=== PATIENT | female | born 1960 | race Caucasian/White ===

== ENCOUNTER 2017-06-25 22:07 | Inpatient (IN) | payer MEDICARE, MEDICAID ==
[~2017-06-25] VITALS: Ht 167.6 cm; Wt 81.3 kg
[2017-06-25] MEDS ORDERED: normal saline 1000ML IV soln IVB ONE (22:20)
[2017-06-25 23:15] LABS: ETHANOL < 0.010 GM/DL (0.0-0.010)
[2017-06-25 23:18] LABS: CLARITY,URINE Clear (Clear); COLOR,URINE Yellow (Yellow); GLUCOSE, URINE Negative (Neg); KETONES,URINE Trace mg/dl (Neg); LEUKOCYTE ESTERASE ,URINE Large (Neg); NITRITES, URINE Negative (Neg); OCCULT BLOOD,URINE Small (Neg); PROTEIN,URINE Negative (Neg); UROBILINOGEN,URINE 0.2 E.U/dL (0.2-1.0)
[2017-06-25 23:22] LABS: URINE AMPHETAMINE SCREEN NEGATIVE (Neg); URINE BARBITUATE SCREEN NEGATIVE (Neg); URINE BENZODIAZEPINES SCREEN NEGATIVE (Neg); URINE CANNABINOID SCREEN NEGATIVE (Neg); URINE COCAINE SCREEN NEGATIVE (Neg); URINE METHADONE SCREEN NEGATIVE (Neg); URINE OPIATE SCREEN NEGATIVE (Neg); URINE PHENCYCLIDINE SCREEN NEGATIVE (Neg)
[2017-06-25 23:37] LABS: UA COLLECTION TYPE VOIDED
[2017-06-25 23:51] LABS: BACTERIA,URINE FEW /HPF (Neg); MUCUS STRANDS NONE SEEN /LPF (Neg); RBC,URINE 0-2 /HPF (0-2); SQUAMOUS EPITHELIAL CELL,UR FEW /LPF (FEW)
[2017-06-25 23:52] LABS: TRANSITIONAL EPI CELLS,URINE MODERATE /HPF
[2017-06-25] MEDS ORDERED: LISI40TA4 PO (23:54)
[2017-06-25] MEDS ORDERED: LORA10TA65 PO (23:54)
[2017-06-25] MEDS ORDERED: ALBU8HFA PO (23:54)
[2017-06-25] MEDS ORDERED: ALPR-624 PO (23:54)
[2017-06-25] MEDS ORDERED: BACL10TA PO (23:54)
[2017-06-25] MEDS ORDERED: ASPI-1071 PO (23:54)
[2017-06-25] MEDS ORDERED: TOPI100T18 PO (23:54)
[2017-06-25] MEDS ORDERED: ATOR40TA PO (23:54)
[2017-06-25] MEDS ORDERED: QUET25TA PO (23:54)
[2017-06-25] MEDS ORDERED: HYDR-565 PO (23:55)
[2017-06-25] MEDS ORDERED: ESCI5TAB PO (23:55)
[2017-06-26] VITALS (20 sets, daily range): BP systolic 98–137; BP diastolic 55–86
[2017-06-26] MEDS ORDERED: QUET-1 PO (00:09)
[2017-06-26] MEDS ORDERED: PROC5TAB56 PO (00:09)
[2017-06-26] MEDS ORDERED: BACL10TA PO (00:09)
[2017-06-26] MEDS ORDERED: DOXE6TAB3 PO (00:09)
[2017-06-26] MEDS ORDERED: SUMA25TA35 PO (00:09)
[2017-06-26] MEDS ORDERED: IBAN150T PO (00:09)
[2017-06-26] MEDS ORDERED: TOPI100T18 PO (00:09)
[2017-06-26] MEDS ORDERED: RANI-366 PO (00:09)
[2017-06-26] MEDS ORDERED: AMLO2.5T2 PO (00:09)
[2017-06-26] MEDS ORDERED: ZOLP5TAB2 PO (00:09)
[2017-06-26] MEDS ORDERED: SERT50TA PO (00:09)
[2017-06-26 00:41] LABS: OCCULT BLOOD STOOL POSITIVE (Neg)
[2017-06-26 00:56] LABS: ABG HCO3 12.7 mmol/L (22.0-26.0); ABG OXYGEN SATURATION 93.3 % (95-98); ABG PCO2 (T) 18.1 mmHg (32.0-45.0); ABG PH (T) 7.461 (7.350-7.450); ABG PO2 (T) 66.5 mmHg (83-108); FMetHb 0.2 % (0.3-1.12); FO2Hb 93.1 % (94-100); PATIENT TEMPERATURE 36.8; TOTAL HEMOGLOBIN 11.6 G/dl (12.0-16.0)
[2017-06-26 00:57] LABS: BASOPHILS % (AUTO) 0 % (0-1); EOSINOPHILS % (AUTO) 0.1 % (0-6); HEMATOCRIT 32.5 % (35.0-45.0); HEMOGLOBIN 11.3 g/dl (12.0-16.0); LYMPHOCYTES # (AUTO) 1.4 X10'3 (1.1-4.8); MEAN CORPUSCULAR HEMOGLOBIN 31.8 PG (27.0-31.0); MEAN CORPUSCULAR HGB CONC 34.8 % (33.0-36.5); MEAN CORPUSCULAR VOLUME 91.3 FL (78-98); MEAN PLATELET VOLUME 8.3 FL (7.4-10.4); MONOCYTES # (AUTO) 0.6 X10'3 (0-0.9); MONOCYTES % (AUTO) 6.3 % (2-12); NEUTROPHILS # (AUTO) 7.9 X10'3 (1.8-7.7); NEUTROPHILS % (AUTO) 79.6 % (42-75); PLATELET COUNT 264 X10'3 (140-440); RED BLOOD COUNT 3.56 X10'6 (4.20-5.60); RED CELL DISTRIBUTION WIDTH 13.9 % (11.5-14.5); WHITE BLOOD COUNT 9.9 X10'3 (4.5-11.0)
[2017-06-26 01:00] LABS: ALANINE AMINOTRANSFERASE 59 U/L (12-78); ALBUMIN 3.2 G/DL (3.4-5.0); ALBUMIN/GLOBULIN RATIO 0.9 (1.1-1.5); ALKALINE PHOSPHATASE 67 IU/L (46-116); ANION GAP 16 (8-16); ASPARTATE AMINO TRANSFERASE 222 U/L (10-37); BILIRUBIN,TOTAL 0.7 MG/DL (0.1-1.0); BLOOD UREA NITROGEN 59 MG/DL (7-18); BUN/CREATININE RATIO 29.4 (6.6-38.0); CHLORIDE 104 MMOL/L (99-107); CREATININE 2.01 MG/DL (0.40-0.90); GLUCOSE 118 MG/DL (70-104); INR 2.7 INR; PARTIAL THROMBOPLASTIN TIME 33 SECONDS (22-32); PROTHROMBIN TIME 26.9 SECONDS (9.0-12.0); SODIUM 134 MMOL/L (135-145); TOTAL PROTEIN 6.8 G/DL (6.4-8.2); eGFR 26 ML/MIN
[2017-06-26 01:04] LABS: ACETAMINOPHEN < 2.0 UG/ML (10-30)
[2017-06-26 01:08] LABS: TOTAL CARBON DIOXIDE 14.3 MMOL/L (24-32)
[2017-06-26 01:09] LABS: OSMOLALITY 292 MOSM/K (280-300)
[2017-06-26] MEDS ORDERED: CefTRIAXone 2gm/NS 100ml IVPB 100 ML IV ONE (01:15)
[2017-06-26] MEDS ORDERED: magnesium 2GM in 50ml NS 50 ML IV ONE (01:20)
[2017-06-26] MEDS ORDERED: potassium Cl 20 mEq SR tablet PO ONE (01:20)
[2017-06-26] MEDS ORDERED: phytonadione inj. 10 MG in normal saline 100ml IV soln 99 ML IV ONE (01:55)
[2017-06-26] MEDS ORDERED: ipratropium/albuterol 3ml nebule NEB PRN (02:15)
[2017-06-26] MEDS: potassium 10mEq/100ml NS w/LIDOcaine (10mg/bag) IV SCH ×2 (02:19→03:15)
[2017-06-26 02:42] LABS: CKMB RELATIVE INDEX 1.9 RATIO (0-2.5); CREATINE KINASE 7973 U/L (26-192)
[2017-06-26] MEDS ORDERED: sodium bicarbonate (0.9mEq/ml) 44.6 mEq/50ml syringe IV ONE (02:45)
[2017-06-26] MEDS ORDERED: sodium bicarbonate (8.4%) inj. 100 MEQ in dextrose 5%-water 1,000 ML IV SCH (02:45)
[2017-06-26] MEDS ORDERED: phytonadione 10 MG/1 ML amp ONE (02:50)
[2017-06-26] MEDS ORDERED: sodium bicarbonate 1 MEQ/1 ml inj ONE (02:55)
[2017-06-26] MEDS ORDERED: normal saline 1000ml 250 ML IV PRN (03:45)
[2017-06-26] MEDS ORDERED: normal saline 1000ml 100 ML IV PRN (03:45)
[2017-06-26] MEDS ORDERED: LORazepam 2 mg/ml vial IV STA (04:01)
[2017-06-26] MEDS: LORazepam 2 mg/ml vial IV PRN (04:16)
[2017-06-26] MEDS ORDERED: heparin 1,000 units/ml 10ml inj HE ONE ×2 (05:15)
[2017-06-26 07:45] LABS: BASOPHILS % (AUTO) 0.2 % (0-1); EOSINOPHILS # (AUTO) 0.1 X10'3 (0-0.9); EOSINOPHILS % (AUTO) 1.3 % (0-6); HEMOGLOBIN 9.8 g/dl (12.0-16.0); LYMPHOCYTES # (AUTO) 1.1 X10'3 (1.1-4.8); LYMPHOCYTES % (AUTO) 15.4 % (21-51); MEAN CORPUSCULAR HEMOGLOBIN 31.4 PG (27.0-31.0); MEAN CORPUSCULAR HGB CONC 33.9 % (33.0-36.5); MEAN CORPUSCULAR VOLUME 92.4 FL (78-98); MEAN PLATELET VOLUME 7.5 FL (7.4-10.4); MONOCYTES # (AUTO) 0.6 X10'3 (0-0.9); MONOCYTES % (AUTO) 8.4 % (2-12); NEUTROPHILS # (AUTO) 5.2 X10'3 (1.8-7.7); NEUTROPHILS % (AUTO) 74.7 % (42-75); PLATELET COUNT 214 X10'3 (140-440); RED BLOOD COUNT 3.13 X10'6 (4.20-5.60); RED CELL DISTRIBUTION WIDTH 14.6 % (11.5-14.5)
[2017-06-26] MEDS ORDERED: pantoprazole 40 MG vial IV SCH (08:00)
[2017-06-26 08:03] LABS: ALANINE AMINOTRANSFERASE 58 U/L (12-78); ALBUMIN 2.8 G/DL (3.4-5.0); ALBUMIN/GLOBULIN RATIO 0.9 (1.1-1.5); ALKALINE PHOSPHATASE 56 IU/L (46-116); ANION GAP 6 (8-16); ASPARTATE AMINO TRANSFERASE 192 U/L (10-37); BILIRUBIN,TOTAL 0.3 MG/DL (0.1-1.0); BLOOD UREA NITROGEN 14 MG/DL (7-18); BUN/CREATININE RATIO 22.6 (6.6-38.0); CALCIUM 6.7 MG/DL (8.5-10.1); CHLORIDE 105 MMOL/L (99-107); CREATININE 0.62 MG/DL (0.40-0.90); GLUCOSE 115 MG/DL (70-104); SODIUM 140 MMOL/L (135-145); TOTAL CARBON DIOXIDE 29.2 MMOL/L (24-32); TOTAL PROTEIN 5.9 G/DL (6.4-8.2); eGFR > 90 ML/MIN
[2017-06-26 08:11] LABS: CREATINE KINASE 6267 U/L (26-192)
[2017-06-26] MEDS ORDERED: potassium Cl 40MEQ/NS 500ml 500 ML IV PRN ×2 (08:40)
[2017-06-26] MEDS ORDERED: magnesium 2GM in 50ml NS 50 ML IV PRN (08:40)
[2017-06-26] MEDS ORDERED: magnesium 4gm in 100ml NS 100 ML IV PRN (08:40)
[2017-06-26] MEDS ORDERED: potassium Cl 20 mEq SR tablet PO PRN (08:40)
[2017-06-26] MEDS ORDERED: magnesium Cl slow-release 64mg tablet PO PRN (08:40)
[2017-06-26] MEDS: potassium Cl 20 mEq SR tablet PO PRN ×3 (08:54→16:10)
[2017-06-26] MEDS ORDERED: HYDROcodone/acetaminophen 10/325mg tab PO PRN (11:25)
[2017-06-26] MEDS ORDERED: SUMAtriptan 25 MG tablet PO PRN (11:25)
[2017-06-26] MEDS ORDERED: albuterol 2.5 MG/3 ML nebule NEB PRN (11:40)
[2017-06-26 12:35] LABS: ABG BASE EXCESS -1.9 mmol/L (-2.0-3.0); ABG HCO3 20.1 mmol/L (22.0-26.0); ABG OXYGEN SATURATION 94.5 % (95-98); ABG PH (T) 7.507 (7.350-7.450); ABG PO2 (T) 71.6 mmHg (83-108); ALLEN'S TEST Positive; FCOHb 0.3 % (0.5-1.5); FMetHb 0.3 % (0.3-1.12); FO2Hb 93.9 % (94-100); TOTAL HEMOGLOBIN 10.7 G/dl (12.0-16.0)
[2017-06-26] MEDS: [UNRECOGNIZED DRUG - OTHER] IV SCH (12:50)
[2017-06-26] MEDS: SODIUM BICARBONATE IV SCH (12:50)
[2017-06-26] MEDS: POTASSIUM CL IV SCH (12:50)
[2017-06-26 13:08] LABS: BASOPHILS % (AUTO) 0.3 % (0-1); EOSINOPHILS # (AUTO) 0.1 X10'3 (0-0.9); HEMATOCRIT 29.8 % (35.0-45.0); LYMPHOCYTES # (AUTO) 1.2 X10'3 (1.1-4.8); LYMPHOCYTES % (AUTO) 20.1 % (21-51); MEAN CORPUSCULAR HEMOGLOBIN 31.2 PG (27.0-31.0); MEAN CORPUSCULAR HGB CONC 33.7 % (33.0-36.5); MEAN CORPUSCULAR VOLUME 92.7 FL (78-98); MEAN PLATELET VOLUME 7.5 FL (7.4-10.4); MONOCYTES # (AUTO) 0.7 X10'3 (0-0.9); MONOCYTES % (AUTO) 11.7 % (2-12); NEUTROPHILS # (AUTO) 3.9 X10'3 (1.8-7.7); NEUTROPHILS % (AUTO) 66.9 % (42-75); PLATELET COUNT 217 X10'3 (140-440); RED BLOOD COUNT 3.21 X10'6 (4.20-5.60); RED CELL DISTRIBUTION WIDTH 15.3 % (11.5-14.5); WHITE BLOOD COUNT 5.9 X10'3 (4.5-11.0)
[2017-06-26 13:15] LABS: INR 1.2 INR; PROTHROMBIN TIME 12.7 SECONDS (9.0-12.0)
[2017-06-26 13:21] LABS: ALANINE AMINOTRANSFERASE 60 U/L (12-78); ALBUMIN 2.9 G/DL (3.4-5.0); ALBUMIN/GLOBULIN RATIO 0.9 (1.1-1.5); ALKALINE PHOSPHATASE 59 IU/L (46-116); ANION GAP 4 (8-16); ASPARTATE AMINO TRANSFERASE 191 U/L (10-37); BILIRUBIN,TOTAL 0.4 MG/DL (0.1-1.0); BLOOD UREA NITROGEN 14 MG/DL (7-18); BUN/CREATININE RATIO 18.2 (6.6-38.0); CALCIUM 6.7 MG/DL (8.5-10.1); CHLORIDE 106 MMOL/L (99-107); CREATININE 0.77 MG/DL (0.40-0.90); GLUCOSE 116 MG/DL (70-104); POTASSIUM 3.1 MMOL/L (3.5-5.1); SODIUM 139 MMOL/L (135-145); TOTAL CARBON DIOXIDE 28.7 MMOL/L (24-32); TOTAL PROTEIN 6.1 G/DL (6.4-8.2); eGFR 77 ML/MIN
[2017-06-26] MEDS: proCHLORperazine 5mg tablet PO SCH ×2 (13:56→19:38)
[2017-06-26 16:25] LABS: BASOPHILS % (AUTO) 0.2 % (0-1); EOSINOPHILS # (AUTO) 0.1 X10'3 (0-0.9); EOSINOPHILS % (AUTO) 1.1 % (0-6); HEMATOCRIT 28.9 % (35.0-45.0); HEMOGLOBIN 9.8 g/dl (12.0-16.0); LYMPHOCYTES # (AUTO) 1.8 X10'3 (1.1-4.8); LYMPHOCYTES % (AUTO) 28.4 % (21-51); MEAN CORPUSCULAR HGB CONC 33.9 % (33.0-36.5); MEAN CORPUSCULAR VOLUME 91.5 FL (78-98); MEAN PLATELET VOLUME 7.6 FL (7.4-10.4); MONOCYTES # (AUTO) 0.8 X10'3 (0-0.9); MONOCYTES % (AUTO) 12.9 % (2-12); NEUTROPHILS # (AUTO) 3.7 X10'3 (1.8-7.7); NEUTROPHILS % (AUTO) 57.4 % (42-75); PLATELET COUNT 211 X10'3 (140-440); RED BLOOD COUNT 3.16 X10'6 (4.20-5.60); RED CELL DISTRIBUTION WIDTH 15.1 % (11.5-14.5); WHITE BLOOD COUNT 6.4 X10'3 (4.5-11.0)
[2017-06-26 16:39] LABS: ALANINE AMINOTRANSFERASE 58 U/L (12-78); ALBUMIN 2.8 G/DL (3.4-5.0); ALBUMIN/GLOBULIN RATIO 0.9 (1.1-1.5); ALKALINE PHOSPHATASE 58 IU/L (46-116); ANION GAP 5 (8-16); ASPARTATE AMINO TRANSFERASE 171 U/L (10-37); BILIRUBIN,TOTAL 0.3 MG/DL (0.1-1.0); BLOOD UREA NITROGEN 13 MG/DL (7-18); BUN/CREATININE RATIO 13.4 (6.6-38.0); CALCIUM 6.7 MG/DL (8.5-10.1); CHLORIDE 106 MMOL/L (99-107); CREATININE 0.97 MG/DL (0.40-0.90); GLUCOSE 114 MG/DL (70-104); POTASSIUM 3.7 MMOL/L (3.5-5.1); SODIUM 140 MMOL/L (135-145); TOTAL CARBON DIOXIDE 28.8 MMOL/L (24-32); TOTAL PROTEIN 5.8 G/DL (6.4-8.2); eGFR 59 ML/MIN
[2017-06-26 16:48] LABS: CREATINE KINASE 5433 U/L (26-192); MAGNESIUM 2.2 MG/DL (1.5-2.4)
[2017-06-26] MEDS: zolpidem 5mg tablet PO PRN (23:30)
[2017-06-27] VITALS (17 sets, daily range): BP systolic 94–150; BP diastolic 55–93
[2017-06-27] MEDS: POTASSIUM CL IV SCH (00:49)
[2017-06-27] MEDS: [UNRECOGNIZED DRUG - OTHER] IV SCH (00:49)
[2017-06-27] MEDS: SODIUM BICARBONATE IV SCH (00:49)
[2017-06-27] MEDS: proCHLORperazine 5mg tablet PO SCH ×4 (00:56→19:42)
[2017-06-27] MEDS: LORazepam 2 mg/ml vial IV PRN (00:56)
[2017-06-27 01:31] LABS: INR 1.1 INR; PARTIAL THROMBOPLASTIN TIME 26 SECONDS (22-32)
[2017-06-27 01:33] LABS: ALANINE AMINOTRANSFERASE 57 U/L (12-78); ALBUMIN 2.6 G/DL (3.4-5.0); ALBUMIN/GLOBULIN RATIO 0.9 (1.1-1.5); ALKALINE PHOSPHATASE 51 IU/L (46-116); ANION GAP 3 (8-16); ASPARTATE AMINO TRANSFERASE 145 U/L (10-37); BILIRUBIN,TOTAL 0.3 MG/DL (0.1-1.0); BLOOD UREA NITROGEN 12 MG/DL (7-18); BUN/CREATININE RATIO 15.8 (6.6-38.0); CALCIUM 6.8 MG/DL (8.5-10.1); CHLORIDE 107 MMOL/L (99-107); CREATININE 0.76 MG/DL (0.40-0.90); GLUCOSE 117 MG/DL (70-104); POTASSIUM 4.2 MMOL/L (3.5-5.1); SODIUM 140 MMOL/L (135-145); TOTAL CARBON DIOXIDE 29.6 MMOL/L (24-32); TOTAL PROTEIN 5.5 G/DL (6.4-8.2); eGFR 78 ML/MIN
[2017-06-27 01:43] LABS: CREATINE KINASE 4146 U/L (26-192); MAGNESIUM 2.1 MG/DL (1.5-2.4)
[2017-06-27 01:44] LABS: PHOSPHORUS 1.2 MG/DL (2.3-4.5)
[2017-06-27 01:57] LABS: BASOPHILS % (AUTO) 0.3 % (0-1); EOSINOPHILS # (AUTO) 0.1 X10'3 (0-0.9); EOSINOPHILS % (AUTO) 1.2 % (0-6); HEMATOCRIT 27.1 % (35.0-45.0); HEMOGLOBIN 9.1 g/dl (12.0-16.0); LYMPHOCYTES # (AUTO) 2.1 X10'3 (1.1-4.8); LYMPHOCYTES % (AUTO) 35.9 % (21-51); MEAN CORPUSCULAR HEMOGLOBIN 31.4 PG (27.0-31.0); MEAN CORPUSCULAR HGB CONC 33.8 % (33.0-36.5); MEAN PLATELET VOLUME 8.2 FL (7.4-10.4); MONOCYTES # (AUTO) 0.7 X10'3 (0-0.9); MONOCYTES % (AUTO) 12.3 % (2-12); NEUTROPHILS % (AUTO) 50.3 % (42-75); PLATELET COUNT 176 X10'3 (140-440); RED BLOOD COUNT 2.91 X10'6 (4.20-5.60); RED CELL DISTRIBUTION WIDTH 15.2 % (11.5-14.5); WHITE BLOOD COUNT 5.9 X10'3 (4.5-11.0)
[2017-06-27] MEDS ORDERED: sodium phosphate inj. 15 MMOL in dextrose 5%-water 150 ML IV PRN (01:59)
[2017-06-27] MEDS ORDERED: sodium phosphate inj. 30 MMOL in dextrose 5%-water 250 ML IV PRN (01:59)
[2017-06-27] MEDS: Neutra Phos packet PO PRN ×3 (02:15→13:21)
[2017-06-27] MEDS: K and/or MAG REPLACEMENT MC SCH (07:30)
[2017-06-27] MEDS: lisinopril 20mg tablet PO SCH (07:37)
[2017-06-27] MEDS: amLODIPine 5mg tablet PO SCH (07:37)
[2017-06-27] MEDS: famotidine 20mg tablet PO SCH (07:37)
[2017-06-27] MEDS: atorvastatin 20mg tablet PO SCH (07:37)
[2017-06-27] MEDS: loratadine 10mg tablet PO SCH (07:37)
[2017-06-27] MEDS ORDERED: non-formulary drug (Ibandronate Sodium (Boniva) 1 TAB) PO SCH (08:00)
[2017-06-27] MEDS ORDERED: aspirin 81mg tablet.DR PO SCH (08:00)
[2017-06-27] MEDS ORDERED: CITALOpram 10mg tablet PO SCH (08:00)
[2017-06-27 08:22] LABS: BASOPHILS % (AUTO) 0.5 % (0-1); EOSINOPHILS # (AUTO) 0.1 X10'3 (0-0.9); EOSINOPHILS % (AUTO) 1.6 % (0-6); HEMOGLOBIN 9.4 g/dl (12.0-16.0); LYMPHOCYTES # (AUTO) 1.8 X10'3 (1.1-4.8); LYMPHOCYTES % (AUTO) 34.6 % (21-51); MEAN CORPUSCULAR HEMOGLOBIN 31.4 PG (27.0-31.0); MEAN CORPUSCULAR HGB CONC 33.7 % (33.0-36.5); MEAN CORPUSCULAR VOLUME 93.3 FL (78-98); MEAN PLATELET VOLUME 7.8 FL (7.4-10.4); MONOCYTES # (AUTO) 0.7 X10'3 (0-0.9); MONOCYTES % (AUTO) 12.6 % (2-12); NEUTROPHILS # (AUTO) 2.7 X10'3 (1.8-7.7); NEUTROPHILS % (AUTO) 50.7 % (42-75); PLATELET COUNT 182 X10'3 (140-440); WHITE BLOOD COUNT 5.3 X10'3 (4.5-11.0)
[2017-06-27 08:31] LABS: PROTHROMBIN TIME 10.7 SECONDS (9.0-12.0)
[2017-06-27 08:38] LABS: ALANINE AMINOTRANSFERASE 54 U/L (12-78); ALBUMIN 2.7 G/DL (3.4-5.0); ALBUMIN/GLOBULIN RATIO 0.9 (1.1-1.5); ALKALINE PHOSPHATASE 54 IU/L (46-116); ANION GAP 3 (8-16); ASPARTATE AMINO TRANSFERASE 143 U/L (10-37); BILIRUBIN,TOTAL 0.4 MG/DL (0.1-1.0); BLOOD UREA NITROGEN 7 MG/DL (7-18); BUN/CREATININE RATIO 12.7 (6.6-38.0); CALCIUM 7.1 MG/DL (8.5-10.1); CHLORIDE 106 MMOL/L (99-107); CREATININE 0.55 MG/DL (0.40-0.90); GLUCOSE 128 MG/DL (70-104); POTASSIUM 4.3 MMOL/L (3.5-5.1); SODIUM 135 MMOL/L (135-145); TOTAL CARBON DIOXIDE 26.4 MMOL/L (24-32); TOTAL PROTEIN 5.8 G/DL (6.4-8.2); eGFR > 90 ML/MIN
[2017-06-27 08:50] LABS: CREATINE KINASE 3516 U/L (26-192)
[2017-06-27] MEDS: sodium chloride 0.45% 1,000 ML IV SCH ×2 (09:56→22:22)
[2017-06-27] MEDS ORDERED: FLU VACC QS2017-18 36MOS UP/PF 60 MCG/0.5 ML SYRINGE IMVAC ONE (10:00)
[2017-06-27 13:30] LABS: PHOSPHORUS 1.4 MG/DL (2.3-4.5)
[2017-06-27 16:39] LABS: PROTHROMBIN TIME 10.1 SECONDS (9.0-12.0)
[2017-06-27] MEDS: SUMAtriptan 25 MG tablet PO PRN (20:25)
[2017-06-27] MEDS: zolpidem 5mg tablet PO PRN (22:22)
[2017-06-28] VITALS: BP 145/107
[2017-06-28] MEDS: LORazepam 2 mg/ml vial IV PRN (00:35)
[2017-06-28] MEDS: proCHLORperazine 5mg tablet PO SCH ×2 (02:00→08:21)
[2017-06-28 05:33] LABS: BASOPHILS % (AUTO) 0.4 % (0-1); EOSINOPHILS # (AUTO) 0.1 X10'3 (0-0.9); EOSINOPHILS % (AUTO) 1.7 % (0-6); HEMATOCRIT 29.5 % (35.0-45.0); HEMOGLOBIN 9.9 g/dl (12.0-16.0); LYMPHOCYTES # (AUTO) 2.7 X10'3 (1.1-4.8); LYMPHOCYTES % (AUTO) 43.5 % (21-51); MEAN CORPUSCULAR HEMOGLOBIN 31.5 PG (27.0-31.0); MEAN CORPUSCULAR HGB CONC 33.6 % (33.0-36.5); MEAN CORPUSCULAR VOLUME 93.8 FL (78-98); MEAN PLATELET VOLUME 7.7 FL (7.4-10.4); MONOCYTES # (AUTO) 0.6 X10'3 (0-0.9); MONOCYTES % (AUTO) 9.5 % (2-12); NEUTROPHILS # (AUTO) 2.7 X10'3 (1.8-7.7); NEUTROPHILS % (AUTO) 44.9 % (42-75); PLATELET COUNT 192 X10'3 (140-440); RED BLOOD COUNT 3.14 X10'6 (4.20-5.60); RED CELL DISTRIBUTION WIDTH 14.8 % (11.5-14.5); WHITE BLOOD COUNT 6.1 X10'3 (4.5-11.0)
[2017-06-28 05:46] LABS: PARTIAL THROMBOPLASTIN TIME 27 SECONDS (22-32)
[2017-06-28 06:00] LABS: MAGNESIUM 1.9 MG/DL (1.5-2.4); PHOSPHORUS 1.8 MG/DL (2.3-4.5); POTASSIUM 4.4 MMOL/L (3.5-5.1)
[2017-06-28 06:53] LABS: ALANINE AMINOTRANSFERASE 54 U/L (12-78); ALBUMIN 2.7 G/DL (3.4-5.0); ALBUMIN/GLOBULIN RATIO 0.9 (1.1-1.5); ALKALINE PHOSPHATASE 54 IU/L (46-116); ANION GAP 8 (8-16); ASPARTATE AMINO TRANSFERASE 105 U/L (10-37); BILIRUBIN,TOTAL 0.4 MG/DL (0.1-1.0); BLOOD UREA NITROGEN 6 MG/DL (7-18); CALCIUM 8.2 MG/DL (8.5-10.1); CHLORIDE 110 MMOL/L (99-107); GLUCOSE 104 MG/DL (70-104); SODIUM 140 MMOL/L (135-145); TOTAL CARBON DIOXIDE 22.3 MMOL/L (24-32); TOTAL PROTEIN 5.8 G/DL (6.4-8.2); eGFR > 90 ML/MIN
[2017-06-28 07:00] VITALS: BP 144/96
[2017-06-28] MEDS: K and/or MAG REPLACEMENT MC SCH (08:00)
[2017-06-28] MEDS: amLODIPine 5mg tablet PO SCH (08:21)
[2017-06-28] MEDS: famotidine 20mg tablet PO SCH (08:21)
[2017-06-28] MEDS: SUMAtriptan 25 MG tablet PO PRN (08:21)
[2017-06-28] MEDS: loratadine 10mg tablet PO SCH (08:21)
[2017-06-28] MEDS: atorvastatin 20mg tablet PO SCH (08:21)
[2017-06-28] MEDS: lisinopril 20mg tablet PO SCH (08:21)
[2017-06-28 08:44] LABS: PROTHROMBIN TIME 9.9 SECONDS (9.0-12.0)
== END 2017-06-28 12:49 | disposition home or self-care (01) | DRG 917 ==
LOC: ER 22:07 → ED HOLD 06-26 02:12 → CICU 2S 06-26 03:33 → SUR 3N 06-27 15:47
PROVIDERS: ADMIT Internal Medicine Critical Care Medicine; ATTEND Family Medicine
PROC: 5A1D70Z Performance of Urinary Filtration, Intermittent, Less than 6 Hours Per Day (ICD-10-PCS; principal; 2017-06-26)
PROC: 06HM33Z Insertion of Infusion Device into Right Femoral Vein, Percutaneous Approach (ICD-10-PCS; 2017-06-26)
DX: T39.092A Poisoning by salicylates, intentional self-harm, initial encounter (principal); G92 Toxic encephalopathy; N17.9 Acute kidney failure, unspecified; E87.4 Mixed disorder of acid-base balance; K92.2 Gastrointestinal hemorrhage, unspecified; D68.9 Coagulation defect, unspecified; E87.1 Hypo-osmolality and hyponatremia; M62.82 Rhabdomyolysis; N39.0 Urinary tract infection, site not specified; E87.6 Hypokalemia; E83.51 Hypocalcemia; E86.0 Dehydration; D64.9 Anemia, unspecified; E07.9 Disorder of thyroid, unspecified; J45.909 Unspecified asthma, uncomplicated; E78.5 Hyperlipidemia, unspecified; F32.9 Major depressive disorder, single episode, unspecified; G47.00 Insomnia, unspecified; I10 Essential (primary) hypertension; Z56.0 Unemployment, unspecified; I69.311 Memory deficit following cerebral infarction; Z79.899 Other long term (current) drug therapy; Z79.01 Long term (current) use of anticoagulants; Z79.82 Long term (current) use of aspirin; Z91.5 Personal history of self-harm; Z87.891 Personal history of nicotine dependence; Y92.89 Other specified places as the place of occurrence of the external cause
CPT/HCPCS: 36415; 36600; 80053; 80305; 80320; 80329; 81001; 82272; 82550; 82553; 82803; 82948; 83605; 83735; 83930; 84100; 84439; 84443; 84484; 85018; 85025; 85610; 85730; 86885; 86900; 86901; 87070; 87088; 90935; 93005; 94760; 96361; 96365; 96368; 97110; 97116; 97162; 97530; 99291; A4315; A6213; A6257; A6449; C1758; C9113; G0257; J0696; J1644; J2060; J2150; J3430; J3475; J3480; J7030; J7060; Q0164; Q2037